=== PATIENT | male | born 1985 | race Caucasian/White ===

== ENCOUNTER 2017-04-16 23:15 | Emergency (ER) | payer OTHER ==
[~2017-04-16] VITALS: Ht 167.6 cm; Wt 78.0 kg
[2017-04-16 23:32] VITALS: Ht 167.6 cm; Wt 78.0 kg
[2017-04-17 03:45] VITALS: BP 118/69
== END 2017-04-17 03:46 | disposition home or self-care (01) ==
LOC: ED 23:15
DX: R10.12 Left upper quadrant pain (principal); J02.9 Acute pharyngitis, unspecified